=== PATIENT | male | born 1985 | race Two or more races ===

== ENCOUNTER 2024-05-24 19:14 | Emergency (ER) | payer BC, OTHER ==
[~2024-05-24] VITALS: Ht 182.9 cm; Wt 121.6 kg
[2024-05-24 19:42] VITALS: BP 139/90; PULSE 109; RESP 16; TEMP 98.1; O2SAT 93
[2024-05-24 19:43] LABS: Basophils # (auto) 0 10 ^3/uL (0-0.2); Basophils % (auto) 0.5 % (0.0-2.0); Eosinophils # (auto) 0 10 ^3/uL (0-0.8); Eosinophils % (auto) 0.5 % (0.0-7.0); Hemoglobin 14.5 g/dL (13.5-17.5); Lymphocytes # (auto) 2.1 10 ^3/uL (0.4-5.4); Lymphocytes % (auto) 26.2 % (10.0-50.0); Mean Corpuscular Hemoglobin 30.6 pg (28.0-32.0); Mean Corpuscular Hgb Conc. 34.5 g/dL (32.0-36.0); Mean Corpuscular Volume 88.6 fL (80.0-100.0); Monocytes # (auto) 0.4 10 ^3/uL (0-1.3); Monocytes % (auto) 5.2 % (0.0-12.0); Neutrophils # (auto) 5.5 10 ^3/uL (1.6-8.6); Neutrophils % (auto) 67.6 % (37.0-80.0); Nucleated Red Blood Cells % 0.2 %; Platelet Count (auto) 315 10^3/uL (140-450); Red Blood Cells 4.74 10^6/uL (4.5-5.90); Red Cell Distribution Width 13.8 % (11.8-14.3); White Blood Cell 8.1 10^3/uL (4.4-10.8)
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
--- NOTE | 2024-05-24 19:49 | ECG ---
[facility] Test Date: 2024-05-24 Test Time: 19:21:15 Pat Name: OSCAR GODOY Department: ED Room: Gender: M Milking Machine Operator: jannette : 1985 Requested By: SIMI COON Order Number: [id number] Reading MD: Joo Carson Measurements Intervals Meigs Rate: 108 P: 49 DC: 181 QRS: 47 QRSD: 93 T: 21 QT: 316 QTc: 424 Interpretive Statements Sinus tachycardia Probable left atrial enlargement Electronically Signed On 05-25-2024 16:12:48 PDT by Joo Carson Please click the below link to view image of tracing.
[2024-05-24 19:51] LABS: Sodium 145 mmol/L (136-145)
[2024-05-24 19:52] LABS: Anion Gap 12 (5-15); Carbon Dioxide 25 mmol/L (20-31)
[2024-05-24 19:57] LABS: BUN/Creatinine Ratio 11.2 (10.0-20.0); Blood Urea Nitrogen 11 mg/dL (9-23); Glucose 101 mg/dL (74-106)
[2024-05-24 19:58] LABS: Calcium 11.1 mg/dL (8.7-10.4); Chloride 108 mmol/L (98-107)
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
[2024-05-24 20:10] LABS: Blood Alcohol 141.5 mg/dL (<10)
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
[2024-05-24] MEDS ORDERED: TETANUS-DIPTH-ACEL PERTUSSIS 0.5ML SYR Tdap IM ONE (21:45)
== END 2024-05-24 23:20 | disposition left against medical advice (07) ==
LOC: ER 19:14
DX: S01.01XA Laceration without foreign body of scalp, initial encounter (principal); R07.89 Other chest pain; F10.129 Alcohol abuse with intoxication, unspecified; Z79.899 Other long term (current) drug therapy; V86.55XA Driver of 3- or 4- wheeled all-terrain vehicle (ATV) injured in nontraffic accident, initial encounter; Y93.I9 Activity, other involving external motion; Y92.488 Other paved roadways as the place of occurrence of the external cause; Y99.8 Other external cause status
CPT/HCPCS: 36415; 70450; 71046; 80048; 80320; 84484; 85025; 93005